=== PATIENT | female | born 1990 | race Caucasian/White ===

== ENCOUNTER 2016-09-08 22:04 | Emergency (ER) | payer OTHER ==
[~2016-09-08] VITALS: Ht 165.1 cm; Wt 54.4 kg
--- NOTE | 2016-09-08 22:10 | NUR ---
TO BED 6 A 26 YO FEMALE PT BIBA#[id number], PT STATES SHE HAD VOMITED AND FELT LIGHT HEADED AFTER BUT UPON ARRIVAL TO ER PATIENT "FELT BETTER." PER PATIENT SHE HAD "STOMACH CRAMPS IN THE AFTERNOON, WAS LIGHT HEADED AND NAUSEOUS. VOMITED ONE TIME, AND "SOON AFTER VOMITING, I FELT BETTER." PATIENT IS AAOX4, AMBULATORY WITH STEADY GAIT. AFEBRILED. VSS. INITIATED COMFORT MEASURES. AWAITING FOR ER MD BEASLEY.
--- NOTE | 2016-09-08 22:34 | NUR ---
DR JARAMILLO AT BEDSIDE FOR EVAL.
--- NOTE | 2016-09-08 22:38 | NUR ---
Patient does not wish to proceed with medical care recommended by Dr. Aquino. Patient given information related to possible complications, up to and including , which could occur as a result of leaving the hospital at this time. Patient verbalizes understanding of risks involved due to leaving against medical advice. Patient has signed AMA form. VSS. Accompanied by boyfriend.
[2016-09-08 22:43] VITALS: BP 103/73
== END 2016-09-08 23:31 | disposition home or self-care (01) ==
LOC: EDBD 22:05 → ER 22:05
DX: R11.2 Nausea with vomiting, unspecified (principal)
CPT/HCPCS: 99283; A4606; Z7610